=== PATIENT | male | born 1960 | race Hispanic/Latino ===

== ENCOUNTER 2019-08-05 22:27 | Observation (INO) | payer SELFPAY ==
[~2019-08-05] VITALS: Ht 170.2 cm; Wt 55.6 kg
--- NOTE | 2019-08-05 22:30 | NUR ---
PATIENT IMMEDIATELY TO TREATMENT AREA VIA WHEELCHAIR FOR BEDSIDE TRIAGE. PLACED ON MONITOR.
--- NOTE | 2019-08-05 23:00 | NUR ---
SLEEPING NO APPARENT DISTRESS.
[2019-08-05 23:16] LABS: HEMATOCRIT 34.1 % (39.0-50.0); HEMOGLOBIN 12.1 g/dl (14.0-18.0); IMMATURE GRANULOCYTES 0.2 % (0.0-5.0); MEAN CELL VOLUME 94.7 fL CALC (80.0-100.0); MEAN CORPUSCULAR HGB 33.6 pG CALC (26.0-32.0); MEAN CORPUSCULAR HGB CONC 35.5 g/L CALC (32.0-36.0); NEUT# 2.16 thou/uL (1.82-7.42); RED BLOOD COUNT 3.6 mill/uL (4.70-6.10); RED CELL DISTRI WIDTH 13.4 % (11.5-15.5)
[2019-08-05 23:18] LABS: URINE BILIRUBIN - DIPSTICK NEGATIVE (NEGATIVE); URINE BLOOD DIPSTICK NEGATIVE (NEGATIVE); URINE COLOR YELLOW; URINE GLUCOSE - DIPSTICK NEGATIVE (NEGATIVE); URINE KETONE NEGATIVE (NEGATIVE); URINE LEUK ESTERASE NEGATIVE (NEGATIVE); URINE NITRITE - DIPSTICK NEGATIVE (Negative); URINE PH 6.5 (4.5-8.0); URINE PROTEIN - DIPSTICK NEGATIVE (NEG-TRACE); URINE SPECIFIC GRAVITY <=1.005; URINE UROBILINOGEN - DIPSTICK 0.2 E.U./dL (0.2)
[2019-08-05 23:21] LABS: BARBITURATES NEGATIVE (NEGATIVE); COCAINE NEGATIVE (NEGATIVE); METHADONE NEGATIVE (NEGATIVE); OXCYCODONE NEGATIVE (NEGATIVE); TETRAHYDROCANNABIONOL NEGATIVE (NEGATIVE); TRICYLIC ANTIDEPRESSANTS NEGATIVE (NEGATIVE)
[2019-08-05 23:38] LABS: ALBUMIN 4.2 g/dL (3.2-5.0); ALKALINE PHOSPHATASE 65 u/l (38-126); AMYLASE 114 u/l (30-110); ANION GAP 17 (6-22 (CALC)); BILIRUBIN, TOTAL 0.4 mg/dL (0.0-1.4); BUN 5 mg/dL (9-20); BUN/CREATININE RATIO 10 (12-20 (CALC)); CARBON DIOXIDE 28 mmol/l (22-30); CHLORIDE 100 mmol/l (95-108); CREATININE 0.5 mg/dL (0.7-1.3); ETHYL ALCOHOL 278 mg/dl (0-30); GFR > 60 ML/MIN (>=60 (CALC)); GFR FOR AFR.AMER. > 60 ML/MIN (>=60 (CALC)); LIPASE 182 u/l (23-300); POTASSIUM 3.6 mmol/l (3.5-5.1); SGOT/AST 45 u/l (17-59); SODIUM 141 mmol/l (137-146); TOTAL PROTEIN 7.4 g/dL (6.3-8.2)
[2019-08-05 23:48] LABS: MYOGLOBIN 23 ng/mL (0 - 121)
--- NOTE | 2019-08-06 | NUR ---
UOP 1400 CC CLEAR PALE YELLOW URINE
--- NOTE | 2019-08-06 01:10 | NUR ---
Admission Note Report Given to: CAROL ANN WITT Transported by: X Wheelchair Stretcher Transported with: X Nurse Transporter X Patent IV O2 X Machine Lay Out Worker
[2019-08-06 01:15] VITALS: BP 142/77
--- NOTE | 2019-08-06 01:15 | NUR ---
PT ARRIVED TO FLOOR VIA WHEELCHAIR. ALERT AND ORIENTED. PT AMBULATED WITH STEADY GAIT STAND BY ASSIST. SOB WITH EXERTION AND C/O L SIDE CHEST PAIN, O2 SAT 98 RA. PT REFUSED AFTER SEVERAL ATTEMPTS TO REMOVE PANTS FOR SKIN CHECK. PT IS IRANIAN SPEAKING BUT DOES APPEAR TO UNDERSTAND SOME JAPANESE QUESTIONS WERE ANSWERED APPROPRIATELY. IV SITE APPEARS HEALTHY AND FLUSHED WITH BLOOD RETURN NOTED. ORIENTED TO ROOM AND CALL LIGHT SYSTEM. BED IN LOWEST POSITION, CALL LIGHT WITHIN REACH. WILL CONTINUE TO MONITOR.
[2019-08-06 04:03] VITALS: BP 120/68
--- NOTE | 2019-08-06 05:02 | NUR ---
PT RESTING IN BED WITH EYES CLOSED. NO APPARENT DISTRESS NOTED. RESPIRATIONS EVEN AND UNLABORED. REPACK ROOM WORKER IN PLACE. IV FLUIDS INFUSING WITHOUT DIFFICULTY. CALL LIGHT WITHIN REACH. WILL CONTINUE TO MONITOR.
[2019-08-06 07:53] VITALS: BP 147/83
--- NOTE | 2019-08-06 08:10 | NUR ---
PT AWAKE RESTING IN BED WATCHING T.V. VSS. B/P 147/83, HR 61. PT IS ALERT, PLEASANT AND COOPERATIVE. NO S/S OR WITHDRAWL NOTED. NO TREMORS PRESENT. MOVES ALL EXT ON COMMAND. LUNGS CLEAR BILAT. ABD SOFT AND NONDISTENDED WITH BOWEL SOUNDS PRESENT. NO LOWER EXT EDEMA NOTED. PEDAL PULSES PALPATED BILAT. IV SITE PATENT IN LEFT A.C. NO REDNESS OR SWELLING AT SITE. BANANA BAG INFUSING AT 100CC/HR. TELE INTACT. PT DENIES ANY DISCOMFORT AT THIS TIME. FREQUENT ROUNDS MADE. CALL FRANK WITHIN REACH.
--- NOTE | 2019-08-06 09:46 | NUR ---
BERENICE AT BEDSIDE SPEAK TO PT IN [place]. PT STATES HE DRINKS 8 BEERS A DAY . PT APPEARS SLIGHTLY ANXIOUS. MEDICATED WITH LIBRIUM 25MG P.O. PT STATES HE HAS DISCOMFORT IN HIS CHEST ONLY WHEN HE COUGHS, OTHERWISE HAS NO DISCOMFORT. PT IS ALERT AND ORIENTED BUT NOT SURE WHERE HE IS. PT INFORMED HE IS IN [facility]. PT STATES HE HAS NO FAMILY BUT LIVES WITH SOME FRIENDS. PT IS PLEASANT AND COOPERATIVE. CALL FRANK WITHIN REACH.
--- NOTE | 2019-08-06 10:46 | NUR ---
PT RESTING IN BED WATCHING T.V. RESP EVEN AND UNLABORED. IV SITE PATENT BANANA BAG AT 100CC/HR. PT OFFERS NO COMPLAINTS. TELE INTACT. FREQUENT ROUNDS MADE. CALL FRANK WITHIN REACH.
[2019-08-06 10:55] VITALS: BP 139/82
--- NOTE | 2019-08-06 12:30 | NUR ---
RESTING IN BED WITH EYES CLOSED. RESP EVEN AND UNLABORED. NO DISTRESS NOTED. IV SITE PATENT. FREQUENT ROUNDS MADE. CALL FRANK WITHIN REACH.
--- NOTE | 2019-08-06 14:30 | NUR ---
RESTING IN BED WITH EYES CLOSED. NO DISTRESS NOTED. IV SITE PATENT. PT APPEARS CALM. FREQUENT ROUNDS MADE. CALL FRANK WITHIN REACH.
[2019-08-06 14:35] VITALS: BP 141/78
--- NOTE | 2019-08-06 16:15 | NUR ---
PT RESTING IN BED. RESP EVEN AND UNLABORED. IV SITE PATENT. PT APPEARS CALM. NO DISTRESS NOTED. FREQUENT ROUNDS MADE. CALL FRANK WITHIN REACH.
[2019-08-06] MEDS ORDERED: OMEPRAZOLE20 MG PO (16:29)
[2019-08-06] MEDS ORDERED: IBUPROFEN600 MG PO (16:29)
--- NOTE | 2019-08-06 17:33 | NUR ---
PER DR ARROYO PT MEDICATED WITH TORADOL 15MG IV FOR LEFT SIDED CHEST DISCOMFORT. IV SITE PATENT. RESP EVEN AND UNLABORED. LYNDA FROM O.R SPRAY PILOT AT BEDSIDE WHEN DR ARROYO WAS IN TO SPEAK WITH PT REGARDING DISCHARGE. PT INSTRUCTED ON DISCHARGE MEDS AND TO STOP DRINKING ETOH. REVIEWED DISCHARGE ORDERS WITH PT WITH SPRAY PILOT AT BEDSIDE. PT INFORMED ABOUT FOLLOW UP APPT WITH PCP IN ONE WEEK. PT HAS NO QUESTIONS REGARDING D/C INSTUCTIONS.
--- NOTE | 2019-08-06 18:10 | NUR ---
ER CALLED AND INFORMED PT GOING TO BE DISCHARGED AND TELE D/ANDREA. IV SITE D/C WITH CATH INTACT. PT STATES HIS PAIN IS BETTER AFTER RECEIVING TORDAL . PT STATES HIS PAIN IS A 1. VSS.
--- NOTE | 2019-08-06 18:35 | NUR ---
PT DISCHARGED VIA WHEELCHAIR WITH DISCHARGE INSTRUCTIONS IN STABLE CONDITION. PTS RIDE IS IN PARKING LOT.
== END 2019-08-06 18:35 | disposition home or self-care (01) | DRG 313 ==
LOC: ED 22:27 → ED-I 23:55 → ED 08-06 00:12 → MS2 08-06 00:13
PROVIDERS: Emergency Medicine; ADMIT Internal Medicine; ATTEND Internal Medicine
DX: R07.89 Other chest pain (principal); F10.20 Alcohol dependence, uncomplicated; F17.210 Nicotine dependence, cigarettes, uncomplicated; Y90.8 Blood alcohol level of 240 mg/100 ml or more
CPT/HCPCS: G0378

== ENCOUNTER 2020-04-13 08:08 | Emergency (ER) | payer SELFPAY ==
[~2020-04-13 08:08] MED LIST: IBUPROFEN600 MG PO; OMEPRAZOLE20 MG PO
[2020-04-13] MEDS ORDERED: CEPHALEXIN500 M1 PO (08:21)
[2020-04-13] MEDS ORDERED: VALACYCLOVIR HCL1 GM PO (08:21)
[2020-04-13 08:27] VITALS: BP 102/57
== END 2020-04-13 08:35 | disposition home or self-care (01) | DRG 866 ==
LOC: ED 08:08
DX: B02.8 Zoster with other complications (principal); L03.317 Cellulitis of buttock; F17.200 Nicotine dependence, unspecified, uncomplicated

== ENCOUNTER 2020-05-19 16:32 | Inpatient (IN) | payer SELFPAY ==
[~2020-05-19] VITALS: Ht 170.2 cm; Wt 51.3 kg
[~2020-05-19 16:32] MED LIST changes: +CEPHALEXIN500 M1 PO; +VALACYCLOVIR HCL1 GM PO
--- NOTE | 2020-05-19 16:55 | NUR ---
to room 15 via ems stretcher, c/o fever, cough, cp, sob x 1 week
[2020-05-19 17:04] LABS: GFR > 60 ML/MIN (>=60 (CALC)); GFR FOR AFR.AMER. > 60 ML/MIN (>=60 (CALC))
[2020-05-19 17:24] LABS: ALBUMIN 4.8 g/dL (3.2-5.0); ALKALINE PHOSPHATASE 77 u/l (38-126); ANION GAP 15 (6-22 (CALC)); BUN 6 mg/dL (9-20); BUN/CREATININE RATIO 14 (12-20 (CALC)); C-REACTIVE PROTEIN < 0.5 mg/dL (0-0.9); CARBON DIOXIDE 23 mmol/l (22-30); CHLORIDE 101 mmol/l (95-108); CREATININE 0.4 mg/dL (0.7-1.3); GFR > 60 ML/MIN (>=60 (CALC)); GFR FOR AFR.AMER. > 60 ML/MIN (>=60 (CALC)); LIPASE 277 u/l (23-300); SODIUM 135 mmol/l (137-146); TOTAL PROTEIN 7.6 g/dL (6.3-8.2)
[2020-05-19 17:33] LABS: BILIRUBIN, TOTAL 0.6 mg/dL (0.0-1.4); SGOT/AST 157 u/l (17-59)
[2020-05-19 17:35] LABS: HEMATOCRIT 35.5 % (39.0-50.0); HEMOGLOBIN 12.5 g/dl (14.0-18.0); MEAN CELL VOLUME 97.3 fL CALC (80.0-100.0); MEAN CORPUSCULAR HGB 34.2 pG CALC (26.0-32.0); MEAN CORPUSCULAR HGB CONC 35.2 g/dL CAL (32.0-36.0); RED BLOOD COUNT 3.65 mill/uL (4.70-6.10)
[2020-05-19 17:36] LABS: BASO% 1 % (0-3); EOS% 1 % (0-8); LYMPH% 36 % (15-41); MONO% 7 % (2-13); NEUT# 3.46 thou/uL (1.82-7.42); NEUT% 55 % (42-76); PLATELET COUNT 151 thou/uL (130-400); RED CELL DISTRI WIDTH 15.3 % (11.5-15.5)
--- NOTE | 2020-05-19 17:39 | NUR ---
PT RETURNED FROM RADIOLOGY AT THIS TIME; MONITORING DEVICES REAPPLIED; VSS; ADVISED OF CONTINUED WAIT TIME
[2020-05-19 17:48] LABS: URINE BILIRUBIN - DIPSTICK NEGATIVE (NEGATIVE); URINE BLOOD DIPSTICK NEGATIVE (NEGATIVE); URINE COLOR YELLOW; URINE GLUCOSE - DIPSTICK 500 mg/dL (NEGATIVE); URINE KETONE NEGATIVE (NEGATIVE); URINE LEUK ESTERASE NEGATIVE (NEGATIVE); URINE NITRITE - DIPSTICK NEGATIVE (Negative); URINE PROTEIN - DIPSTICK 30 mg/dL (NEG-TRACE); URINE SPECIFIC GRAVITY >=1.030
[2020-05-19 17:54] LABS: URINE RBC 0-2 RBC/hpf (0-5)
[2020-05-19 17:55] LABS: URINE WBC 0-2 WBC/hpf (0-5)
--- NOTE | 2020-05-19 18:26 | NUR ---
DR PARTIDA AT BEDSIDE TO DISCUSS POC AND FINDINGS
--- NOTE | 2020-05-19 18:54 | NUR ---
REPORT GIVEN TO CAROL ANN MARTÍNEZ
--- NOTE | 2020-05-19 20:00 | NUR ---
RESTING QUIETLY AWAITING ADMIT.
--- NOTE | 2020-05-19 21:45 | NUR ---
Admission Note Report Given to: CAROL ANN ORNELAS Transported by: Wheelchair X Stretcher Transported with: X Nurse Transporter X Patent IV X O2 X Instructor Dramatic Arts Location: ICU X [facility]
--- NOTE | 2020-05-19 21:52 | NUR ---
TO FLOOR VIA STRETCHER.
[2020-05-19 22:11] VITALS: BP 159/90
--- NOTE | 2020-05-19 22:30 | NUR ---
- ARRIVED TO THE FLOOR VIA STRETCHER ACCOMPANIED BY CONTRACTS SPECIALIST, MICK. PT. ABLE TO AMBULATE WITH ASSISTANCE TO BED. ADMISSION ASSESSMENT COMPLETED. NO DISTRESS NOTED. PT. C/O GENERALIZED FATIGUE AND PAIN; MEDICATED WITH ORDERED PRN TYLENOL AND SNACK PROVIDED. PT. WITH GOOD APPETITE EDUCATED ON USE OF CALL LIGHT,POC, AND ROOM AND VERBALIZES UNDERSTANDING. ENCOURGED TO CALL FOR ANY NEEDS. WATER PROVIDED. CALL LIGHT IS IN REACH.
--- NOTE | 2020-05-20 | NUR ---
REASSESSED TEMP AND PAIN; SEE INTERVENTION. DENIES NEED.S
--- NOTE | 2020-05-20 02:05 | NUR ---
PT. ASSISTED TO THE BATHROOM AND BACK INTO BED ; PT. NOTED WITH SLOW GAIT. PT. HAD A BM THEN ASSISTED BACK INTO BED. NEW IV STARTED TO LW X2 ATTEMPT AND AM LABS DRAWN. EMS SITE REMOVED WITH CATHTER TIP INTACT. DENIES FURTHER NEEDS. CALL LIGHT IS IN REACH.
[2020-05-20 02:40] LABS: HEMATOCRIT 36.3 % (39.0-50.0); HEMOGLOBIN 12.6 g/dl (14.0-18.0); IMMATURE GRANULOCYTES 0.3 % (0.0-5.0); MEAN CELL VOLUME 95.5 fL CALC (80.0-100.0); MEAN CORPUSCULAR HGB 33.2 pG CALC (26.0-32.0); MEAN CORPUSCULAR HGB CONC 34.7 g/dL CAL (32.0-36.0); NEUT# 3.86 thou/uL (1.82-7.42); RED BLOOD COUNT 3.8 mill/uL (4.70-6.10); RED CELL DISTRI WIDTH 14.6 % (11.5-15.5)
[2020-05-20 03:55] VITALS: BP 140/79
[2020-05-20 07:36] VITALS: BP 144/77
--- NOTE | 2020-05-20 07:36 | NUR ---
PT SITTING IN BED. A&OX3. NO DISTRESS NOTED. PT REPORTS GENERALIZED WEAKNESS. REPORTS COUGH AND WEAKNESS X 3DAYS. PT CURRENTLY ON ROOM AIR. NO OTHER NEEDS AT THIS TIME. ASSESSMENT COMPLETED. DISCUSSED POC. CALL LIGHT IN REACH. CONTINUE TO MONITOR.
[2020-05-20 11:04] VITALS: BP 109/69
--- NOTE | 2020-05-20 15:21 | NUR ---
PT SITTING IN BED. NO DISTRESS OR NEEDS AT THIS TIME. CALL LIGHT IN REACH. CONTINUE TO MONITOR.
[2020-05-20 15:34] VITALS: BP 120/78
--- NOTE | 2020-05-20 17:45 | NUR ---
PT SITTING IN BED EATING. NO NEEDS OR DISTRESS AT THIS TIME. CALL LIGHT IN REACH. CONTINUE TO MONITOR.
[2020-05-20 19:15] VITALS: BP 122/72
--- NOTE | 2020-05-20 22:10 | NUR ---
PT MEDICATED AND ASSESSMENT COMPLETED AT THIS TIME. PT DENIES ANY OTHER NEEDS AT THIS TIME. CALL LIGHT AT SIDE AND PT ENCOURAGED TO CALL NEEDS ARISE.
[2020-05-20 23:35] VITALS: BP 137/78
--- NOTE | 2020-05-21 00:23 | NUR ---
V/S ASSESSED, DENIES ANY NEEDS. NO S/O DISTRESS.
[2020-05-21 03:15] VITALS: BP 144/73
[2020-05-21 08:02] VITALS: BP 145/81
--- NOTE | 2020-05-21 08:02 | NUR ---
PT SITTING IN BED EATING BREAKFAST. A&O X3. PT REPORTS TO BE FEELING A LITTLE BETTER TODAY BUT STILL C/O WEAKNESS. NO OTHER NEEDS AT THIS TIME. ASSESSMENT COMPLETED. DISCUSSED POC. CALL LIGHT IN REACH. CONTINUE TO MONITOR.
[2020-05-21 10:09] LABS: HEMATOCRIT 34.1 % (39.0-50.0); HEMOGLOBIN 11.7 g/dl (14.0-18.0); IMMATURE GRANULOCYTES 0.2 % (0.0-5.0); MEAN CELL VOLUME 95.5 fL CALC (80.0-100.0); MEAN CORPUSCULAR HGB 32.8 pG CALC (26.0-32.0); MEAN CORPUSCULAR HGB CONC 34.3 g/dL CAL (32.0-36.0); NEUT# 2.83 thou/uL (1.82-7.42); RED BLOOD COUNT 3.57 mill/uL (4.70-6.10); RED CELL DISTRI WIDTH 14.3 % (11.5-15.5)
[2020-05-21 10:35] LABS: ALKALINE PHOSPHATASE 60 u/l (38-126); ANION GAP 10 (6-22 (CALC)); BILIRUBIN, TOTAL 0.7 mg/dL (0.0-1.4); BUN 9 mg/dL (9-20); BUN/CREATININE RATIO 18 (12-20 (CALC)); C-REACTIVE PROTEIN < 0.5 mg/dL (0-0.9); CARBON DIOXIDE 26 mmol/l (22-30); CHLORIDE 101 mmol/l (95-108); CREATININE 0.5 mg/dL (0.7-1.3); GFR > 60 ML/MIN (>=60 (CALC)); GFR FOR AFR.AMER. > 60 ML/MIN (>=60 (CALC)); POTASSIUM 3.2 mmol/l (3.5-5.1); SGOT/AST 72 u/l (17-59); SODIUM 133 mmol/l (137-146); TOTAL PROTEIN 6.3 g/dL (6.3-8.2)
[2020-05-21 10:45] LABS: ALBUMIN 3.8 g/dL (3.2-5.0)
[2020-05-21 11:00] VITALS: BP 107/63
--- NOTE | 2020-05-21 13:50 | NUR ---
RACIEL OCAMPO PT WAS GOING TO BE D/C TODAY, AFTER EXPLAINING TO THE PT THAT HE WOULD BE D/C AFTER THE MAG 4 HR INFUSION WAS OVER PT STATED THAT HE HAS NO PLACE TO GO. PER PT HE WAS KICKED OUT OF HIS HOME FOR NOT PAYING HIS RENT AND THAT HIS BROTHER WAS GOING TO BUY HIM TICKETS TO GET ON A BUS TO MOVE TO [place] WITH HIM. EXPLAINED TO THE PT THAT IT WOULD NOT BE APPROPRIATE FOR HIM TO RIDE THE BUS SINCE HE HAS COVID 19. DR OCAMPO AND IBIS LIZ NOTIFIED OF SITUATION. RACIEL OCAMPO KEEP PT ONE MORE DAY AND GET CASE MANAGEMENT INVOLVED.
[2020-05-21 15:56] VITALS: BP 117/64
--- NOTE | 2020-05-21 17:59 | NUR ---
PT SITTING IN BED.NO DISTRESS OR NEEDS AT THIS TIME. PT STATES THAT HE GOT IN CONTACT WITH HIS LANDLORD AND WAS ABLE TO GET HIS HOUSING SITUATION FIGURED OUT FOR THE TIME BEING AND THAT HE WOULD LIKE TO BE D/C'D TOMORROW. DR OCAMPO NOTIFIED.
--- NOTE | 2020-05-21 18:40 | NUR ---
PER TERRENCE D/C ORDERS TO BE PLACED. SARA NOTIFIED THAT PT DID NOT HAVE CAB FARE MONEY, PER SARA PT IS ABLE TO GET CAB FARE ASSISTANCE. ER REG NOTIFIED, PT NOTIFIED.
[2020-05-21 18:55] VITALS: BP 127/74
[2020-05-21] MEDS ORDERED: ZITHROMAX250 MG PO (19:26)
--- NOTE | 2020-05-21 20:42 | NUR ---
Discharge instructions given. Patient verbalizes understanding of same. Discharged in stable condition via Taxi to Home with staff. All belongings sent with pt.
== END 2020-05-21 20:45 | disposition home or self-care (01) | DRG 179 ==
LOC: ED 16:32 → ED-I 18:25 → ED 19:03 → ED-I 19:04 → MS2 19:23
PROVIDERS: Family Medicine; Nurse Practitioner Family; ADMIT Internal Medicine; ATTEND Internal Medicine
PROC: 3E0234Z Introduction of Serum, Toxoid and Vaccine into Muscle, Percutaneous Approach (ICD-10-PCS; principal; 2020-05-20)
DX: U07.1 COVID-19 (principal); J40 Bronchitis, not specified as acute or chronic; E11.9 Type 2 diabetes mellitus without complications; J43.9 Emphysema, unspecified; I10 Essential (primary) hypertension; F10.10 Alcohol abuse, uncomplicated; E87.6 Hypokalemia; E83.42 Hypomagnesemia; F17.200 Nicotine dependence, unspecified, uncomplicated; Z23 Encounter for immunization; Z60.2 Problems related to living alone
CPT/HCPCS: J1650; J3475; Q9967